=== PATIENT | male | born 1955 | race Caucasian/White ===

== ENCOUNTER 2022-06-30 19:16 | Inpatient (IN) | payer MEDICARE, MEDICAID ==
[~2022-06-30] VITALS: Ht 170.2 cm; Wt 87.1 kg
[2022-06-30] MEDS ORDERED: NOREPINEPHRINE 8 MG in DEXT 5% WATER 242 ML IV STA ×2 (20:04→20:21)
[2022-06-30] MEDS ORDERED: PROPOFOL 10MG/ML 100ML 100 ML IV STA (20:04)
[2022-06-30 20:25] LABS: CHLORIDE 97 mEq/L (98-107)
[2022-06-30 20:27] LABS: HEMATOCRIT. 38.1 % (42.0-52.0); HEMOGLOBIN. 12.1 g/dL (14.0-18.0); MEAN CORPUSCULAR HEMOGLOBIN 29.3 pg (28.0-32.0); MEAN CORPUSCULAR VOLUME 92.2 fL (80.0-94.0); MEAN PLATELET VOLUME 7.2 fl (7.4-10.4); PLATELET 528 x1000/uL (130-400); RED BLOOD CELL COUNT 4.14 mill/uL (4.7-6.1); RED CELL DISTRIBUTION WIDTH 16.4 % (11.6-14.6)
[2022-06-30 20:42] LABS: ETHANOL BLOOD < 10 mg/dL
[2022-06-30] MEDS ORDERED: PIPERACILLIN/TAZ 3.375G PREMIX 50 ML IV ONE (21:15)
[2022-06-30] MEDS ORDERED: DOCUSATE SODIUM 100MG CAPSULE PO PRN (21:15)
[2022-06-30] MEDS ORDERED: ALBUTEROL (0.083%) 2.5MG/3ML NEB HHN ONE (21:15)
[2022-06-30] MEDS ORDERED: SODIUM CHLORIDE 0.9% 1,000 ML IV SCH (21:15)
[2022-06-30] MEDS ORDERED: DEXTROSE 50% WATER 50ML SYRINGE IV ONE (21:15)
[2022-06-30] MEDS ORDERED: MAGNESIUM/ALUMINUM HYDROXIDE/SIMETHICONE 30ML UDC PO PRN (21:15)
[2022-06-30] MEDS ORDERED: ACETAMINOPHEN 325MG TABLET PO PRN (21:15)
[2022-06-30] MEDS ORDERED: SODIUM POLYSTYRENE SULFONATE 15 G/60 ML BOT PO ONE (21:15)
[2022-06-30] MEDS ORDERED: INSULIN REGULAR (HUMULIN R) 300UNITS/3ML VIAL IV ONE (21:15)
[2022-06-30] MEDS ORDERED: VANCOMYCIN 1G PREMIX 200 ML IV ONE (21:15)
[2022-06-30] MEDS ORDERED: SODIUM BICARBONATE 8.4% 1 MEQ/ML 50ML SYR IV ONE (21:15)
[2022-06-30] MEDS ORDERED: SODIUM CHLORIDE 0.9% 1000ML BAG (SEPSIS BOLUS) IV ONE (21:15)
[2022-06-30] MEDS ORDERED: CLONIDINE 0.1MG TABLET PO PRN (21:15)
[2022-06-30] MEDS ORDERED: NOREPINEPHRINE 8 MG in DEXT 5% WATER 242 ML IV PRN (21:15)
[2022-06-30] MEDS ORDERED: GUAIFENESIN 200MG/10ML SUGAR FREE UDC PO PRN (21:15)
[2022-06-30] MEDS ORDERED: ONDANSETRON HCL 4MG/2ML INJ IV PRN (21:15)
[2022-06-30] MEDS ORDERED: DIPHENHYDRAMINE 50MG/ML VIAL IV PRN (21:15)
[2022-06-30] MEDS ORDERED: CALCIUM GLUCONATE 1GM PREMIX 50 ML IV ONE (21:15)
[2022-06-30 21:16] LABS: PARTIAL THROMBOPLASTIN TIME 23.9 sec (23.4-31.0); PROTHROMBIN TIME 10.7 sec (9.6-11.0)
[2022-06-30] MEDS ORDERED: DEXTROSE 50% WATER 50ML SYRINGE IV PRN (21:30)
[2022-06-30] MEDS ORDERED: PIPERACILLIN/TAZOBACTAM 3.375GM/50ML PREMIX IV SCH (22:00)
[2022-06-30 22:02] LABS: PLATELET ESTIMATE INCREASED
[2022-06-30 22:14] LABS: BG BASE EXCESS 3.3 mmol/L (-2.0-2.0); BG CARBOXYHEMOGLOBIN 1.1 % (0.5-1.5); BG DEOXYHEMOGLOBIN 7.5 % (0.0-5.0); BG FRACTION INSPIRED OXYGEN 60; BG HCO3 ACT 29.7 mmol/L (22.0-26.0); BG METHEMOGLOBIN 0.4 % (0.0-1.5); BG OXYGEN SATURATION 92.4 % (92.0-98.5); BG PCO2 53.2 mmHg (35.0-45.0); BG PH 7.365 (7.350-7.450); BG PO2 64.8 mmHg (75.0-100.0); BG SAMPLE SITE RIGHT BRACHIAL; BG TOTAL HEMOGLOBIN 12.3 g/dL (12.0-18.0); BG VENT MODE VENT - AC
[2022-06-30] MEDS ORDERED: VANCOMYCIN 1G PREMIX 200 ML IV NR (22:30)
[2022-06-30] MEDS ORDERED: LORAZEPAM 2MG/ML CPJ IV ONE (22:45)
[2022-06-30] MEDS ORDERED: SODIUM BICARBONATE 8.4% 1 MEQ/ML 50ML SYR IV NR (23:00)
[2022-06-30] MEDS ORDERED: INSULIN REGULAR (HUMULIN R) 300UNITS/3ML VIAL IV NR (23:00)
[2022-06-30 23:11] LABS: CREATINE KINASE MB FRACTION 1.8 ng/mL (0.5-3.6); T4 FREE 1.09 ng/dL (0.76-1.46)
[2022-06-30] MEDS: FAMOTIDINE 20MG/2ML VIAL IV SCH (23:41)
[2022-06-30] MEDS: FUROSEMIDE 100MG/10ML VIAL IVP NR (23:49)
[2022-07-01] VITALS (16 sets, daily range): BP systolic 107–127; BP diastolic 38–87
[2022-07-01] MEDS: FUROSEMIDE 100MG/10ML VIAL IVP NR (00:02)
[2022-07-01] MEDS ORDERED: LORAZEPAM 2MG/ML CPJ ONE (00:21)
[2022-07-01] MEDS ORDERED: PROPOFOL 10MG/ML 100ML 100 ML IV NR (03:15)
[2022-07-01] MEDS: PIPERACILLIN/TAZ 3.375G PREMIX 50 ML IV SCH ×2 (04:00→17:11)
[2022-07-01 06:00] LABS: BASOPHILS % 0.6 % (0.0-2.0); EOSINOPHILS % 0.4 % (0.0-5.0); HEMATOCRIT. 31.5 % (42.0-52.0); HEMOGLOBIN. 10.6 g/dL (14.0-18.0); LYMPHOCYTES % 8.9 % (20.0-50.0); MEAN CORPUSCULAR HEMOGLOBIN 30.1 pg (28.0-32.0); MEAN CORPUSCULAR VOLUME 89.7 fL (80.0-94.0); MEAN PLATELET VOLUME 6.8 fl (7.4-10.4); MONOCYTES % 4.9 % (2.0-8.0); NEUTROPHILS % 85.2 % (40.0-76.0); PLATELET 342 x1000/uL (130-400); RED BLOOD CELL COUNT 3.51 mill/uL (4.7-6.1); RED CELL DISTRIBUTION WIDTH 16.1 % (11.6-14.6)
[2022-07-01] MEDS ORDERED: VANCOMYCIN 750MG PREMIX 150 ML IV SCH (06:00)
[2022-07-01 06:07] LABS: CHLORIDE 102 mEq/L (98-107)
[2022-07-01 06:20] LABS: CREATINE KINASE 101 IU/L (39-308); CREATINE KINASE MB FRACTION 1.7 ng/mL (0.5-3.6)
[2022-07-01] MEDS: BLOOD SUGAR DIAGNOSTIC STRIP TEST SCH ×4 (09:15→21:25)
[2022-07-01 09:26] LABS: BG BASE EXCESS 5.9 mmol/L (-2.0-2.0); BG CARBOXYHEMOGLOBIN 0.3 % (0.5-1.5); BG DEOXYHEMOGLOBIN 0.9 % (0.0-5.0); BG FRACTION INSPIRED OXYGEN 90; BG HCO3 ACT 28.5 mmol/L (22.0-26.0); BG METHEMOGLOBIN 0.7 % (0.0-1.5); BG OXYGEN SATURATION 99.1 % (92.0-98.5); BG OXYHEMOGLOBIN 98.1 % (94.0-97.0); BG PCO2 33.9 mmHg (35.0-45.0); BG PH 7.542 (7.350-7.450); BG PO2 213.5 mmHg (75.0-100.0); BG SAMPLE SITE RIGHT BRACHIAL; BG TOTAL HEMOGLOBIN 10.7 g/dL (12.0-18.0); BG VENT MODE VENT - AC
[2022-07-01] MEDS: INSULIN LISPRO 100 UNITS/ML SUBCUT SCH ×3 (09:48→21:00)
[2022-07-01] MEDS: FAMOTIDINE 20MG/2ML VIAL IV SCH (10:46)
[2022-07-01] MEDS: ENOXAPARIN 40MG/0.4ML SYR SUBCUT SCH (10:47)
[2022-07-01] MEDS: VANCOMYCIN 750MG PREMIX 150 ML IV SCH (11:30)
[2022-07-01] MEDS ORDERED: FENTANYL CITRATE/PF 2,500 MCG in SODIUM CHLORIDE 0.9% 200 ML IV PRN (12:30)
[2022-07-01] MEDS: FENTANYL 2500MCG/250ML PMX 250 ML IV PRN (14:30)
[2022-07-01] MEDS: DEXT 5%/0.45% NACL 1000ML 1,000 ML IV SCH ×2 (17:12→21:25)
[2022-07-01] MEDS ORDERED: METRONIDAZOLE 1000 MG PREMIX 200 ML IV SCH (18:00)
[2022-07-01] MEDS ORDERED: METRONIDAZOLE 500 MG PREMIX 100 ML IV SCH (18:30)
[2022-07-01] MEDS: PIPERACILLIN/TAZOBACTAM 3.375G in DEXT 5% WATER 50ML IV SCH (22:19)
[2022-07-02] VITALS (91 sets, daily range): BP systolic 90–156; BP diastolic 32–93
[2022-07-02] MEDS: VANCOMYCIN 750MG PREMIX 150 ML IV SCH ×2 (02:59→21:00)
[2022-07-02] MEDS: METRONIDAZOLE 500 MG PREMIX 100 ML IV SCH ×3 (03:00→21:00)
[2022-07-02] MEDS ORDERED: PROPOFOL 10MG/ML 100ML 100 ML IV ONE (03:15)
[2022-07-02 05:29] LABS: BASOPHILS % 0.7 % (0.0-2.0); EOSINOPHILS % 0.5 % (0.0-5.0); HEMATOCRIT. 32.7 % (42.0-52.0); HEMOGLOBIN. 10.7 g/dL (14.0-18.0); LYMPHOCYTES % 8.2 % (20.0-50.0); MEAN CORPUSCULAR HEMOGLOBIN 29.6 pg (28.0-32.0); MEAN CORPUSCULAR VOLUME 90.6 fL (80.0-94.0); MEAN PLATELET VOLUME 7.1 fl (7.4-10.4); MONOCYTES % 4.9 % (2.0-8.0); NEUTROPHILS % 85.7 % (40.0-76.0); PLATELET 298 x1000/uL (130-400); RED BLOOD CELL COUNT 3.61 mill/uL (4.7-6.1); RED CELL DISTRIBUTION WIDTH 15.5 % (11.6-14.6)
[2022-07-02 05:48] LABS: CHLORIDE 101 mEq/L (98-107)
[2022-07-02] MEDS: BLOOD SUGAR DIAGNOSTIC STRIP TEST SCH ×4 (06:07→21:02)
[2022-07-02] MEDS: INSULIN LISPRO 100 UNITS/ML SUBCUT SCH ×4 (06:07→21:00)
[2022-07-02 06:08] LABS: TOTAL IRON BINDING CAPACITY 298 ug/dL (250-450)
[2022-07-02 08:10] LABS: BG CARBOXYHEMOGLOBIN 0.9 % (0.5-1.5); BG DEOXYHEMOGLOBIN 4.4 % (0.0-5.0); BG HCO3 ACT 30.5 mmol/L (22.0-26.0); BG METHEMOGLOBIN 0.4 % (0.0-1.5); BG OXYGEN SATURATION 95.5 % (92.0-98.5); BG OXYHEMOGLOBIN 94.3 % (94.0-97.0); BG PCO2 43.8 mmHg (35.0-45.0); BG PO2 77.2 mmHg (75.0-100.0); BG SAMPLE SITE RIGHT RADIAL; BG TOTAL HEMOGLOBIN 10.5 g/dL (12.0-18.0); BG VENT MODE VENT - AC
[2022-07-02 08:19] LABS: FERRITIN 20 ng/mL (22-322); PROSTRATE SPECIFIC AG TOTAL 0.46 ng/mL (0.0-4.0)
[2022-07-02] MEDS: AMLODIPINE 5MG TABLET PO SCH (09:00)
[2022-07-02] MEDS: PANTOPRAZOLE SODIUM 40 MG/VIAL IV SCH (09:01)
[2022-07-02] MEDS: PIPERACILLIN/TAZOBACTAM 3.375G in DEXT 5% WATER 50ML IV SCH ×3 (09:01→21:00)
[2022-07-02] MEDS: IRON SUCROSE COMPLEX 100 MG/5 ML ML IV SCH (10:07)
[2022-07-02] MEDS: ENOXAPARIN 40MG/0.4ML SYR SUBCUT SCH (10:08)
[2022-07-02] MEDS: DEXT 5%/0.45% NACL 1000ML 1,000 ML IV SCH ×2 (11:43→21:03)
[2022-07-02] MEDS: PROPOFOL 10MG/ML 100ML 100 ML IV PRN ×2 (12:35→17:30)
[2022-07-02] MEDS: FENTANYL 2500MCG/250ML PMX 250 ML IV PRN (12:54)
[2022-07-02] MEDS ORDERED: IOHEXOL-300 100 ML BOTTLE ONE (14:39)
[2022-07-02 17:22] LABS: VITAMIN B12 SERUM 428 pg/mL (211-911)
[2022-07-02] MEDS: METOCLOPRAMIDE HCL 10MG/2ML VIAL IV SCH ×2 (17:37→21:02)
[2022-07-03] VITALS (64 sets, daily range): BP systolic 99–174; BP diastolic 49–90
[2022-07-03] MEDS: METOCLOPRAMIDE HCL 10MG/2ML VIAL IV SCH ×6 (02:09→21:03)
[2022-07-03] MEDS: METRONIDAZOLE 500 MG PREMIX 100 ML IV SCH ×3 (03:25→20:19)
[2022-07-03 05:18] LABS: BASOPHILS % 0.7 % (0.0-2.0); EOSINOPHILS % 0.9 % (0.0-5.0); HEMATOCRIT. 30.5 % (42.0-52.0); HEMOGLOBIN. 10.3 g/dL (14.0-18.0); LYMPHOCYTES % 9.6 % (20.0-50.0); MEAN CORPUSCULAR HEMOGLOBIN 30.2 pg (28.0-32.0); MEAN CORPUSCULAR VOLUME 89.2 fL (80.0-94.0); MEAN PLATELET VOLUME 7.3 fl (7.4-10.4); MONOCYTES % 5.1 % (2.0-8.0); NEUTROPHILS % 83.7 % (40.0-76.0); PLATELET 277 x1000/uL (130-400); RED BLOOD CELL COUNT 3.42 mill/uL (4.7-6.1); RED CELL DISTRIBUTION WIDTH 15.9 % (11.6-14.6)
[2022-07-03 05:35] LABS: CHLORIDE 101 mEq/L (98-107)
[2022-07-03] MEDS: BLOOD SUGAR DIAGNOSTIC STRIP TEST SCH ×4 (05:43→21:03)
[2022-07-03] MEDS: PIPERACILLIN/TAZOBACTAM 3.375G in DEXT 5% WATER 50ML IV SCH ×3 (05:43→21:04)
[2022-07-03] MEDS: INSULIN LISPRO 100 UNITS/ML SUBCUT SCH ×4 (07:00→21:00)
[2022-07-03] MEDS ORDERED: PROPOFOL 10MG/ML 100ML 100 ML IV PRN (08:15)
[2022-07-03] MEDS: IRON SUCROSE COMPLEX 100 MG/5 ML ML IV SCH (08:47)
[2022-07-03] MEDS: PANTOPRAZOLE SODIUM 40 MG/VIAL IV SCH (08:47)
[2022-07-03] MEDS: AMLODIPINE 5MG TABLET PO SCH (08:48)
[2022-07-03] MEDS: ENOXAPARIN 40MG/0.4ML SYR SUBCUT SCH (08:52)
[2022-07-03] MEDS: DEXT 5%/0.45% NACL 1000ML 1,000 ML IV SCH ×2 (08:55→17:30)
[2022-07-03 08:56] LABS: BG BASE EXCESS 2.7 mmol/L (-2.0-2.0); BG CARBOXYHEMOGLOBIN 0.5 % (0.5-1.5); BG DEOXYHEMOGLOBIN 3.2 % (0.0-5.0); BG FRACTION INSPIRED OXYGEN 50; BG HCO3 ACT 28.3 mmol/L (22.0-26.0); BG METHEMOGLOBIN 0.4 % (0.0-1.5); BG OXYGEN SATURATION 96.8 % (92.0-98.5); BG OXYHEMOGLOBIN 95.9 % (94.0-97.0); BG PO2 99.3 mmHg (75.0-100.0); BG SAMPLE SITE LEFT RADIAL; BG TOTAL HEMOGLOBIN 9.7 g/dL (12.0-18.0); BG VENT MODE VENT - AC
[2022-07-03] MEDS ORDERED: ALBUTEROL (0.083%) 2.5MG/3ML NEB HHN PRN (10:45)
[2022-07-03] MEDS ORDERED: IPRATROPIUM/ALBUTEROL 0.5-3(2.5)MG/3ML NEB HHN PRN (10:45)
[2022-07-03] MEDS ORDERED: DEXTROSE 50% WATER 50ML SYRINGE IV PRN (12:00)
[2022-07-03] MEDS ORDERED: ALBUTEROL (0.083%) 2.5MG/3ML NEB HHN SCH (12:00)
[2022-07-03 13:40] LABS: BG BASE EXCESS 1.6 mmol/L (-2.0-2.0); BG CARBOXYHEMOGLOBIN 0.9 % (0.5-1.5); BG DEOXYHEMOGLOBIN 7.7 % (0.0-5.0); BG FRACTION INSPIRED OXYGEN 40; BG HCO3 ACT 28.1 mmol/L (22.0-26.0); BG METHEMOGLOBIN 0.6 % (0.0-1.5); BG OXYGEN SATURATION 92.2 % (92.0-98.5); BG OXYHEMOGLOBIN 90.8 % (94.0-97.0); BG PH 7.343 (7.350-7.450); BG PO2 68.1 mmHg (75.0-100.0); BG SAMPLE SITE RIGHT RADIAL; BG TOTAL HEMOGLOBIN 12.3 g/dL (12.0-18.0); BG VENT MODE VENT - CPAP
[2022-07-03] MEDS: IPRATROPIUM/ALBUTEROL 0.5-3(2.5)MG/3ML NEB HHN SCH ×2 (14:06→20:47)
[2022-07-03] MEDS ORDERED: BLOOD SUGAR DIAGNOSTIC STRIP TEST SCH (16:30)
[2022-07-03] MEDS: VANCOMYCIN 750MG PREMIX 150 ML IV SCH (21:03)
[2022-07-03] MEDS ORDERED: INSULIN GLARGINE 100 UNITS/ML SUBCUT SCH (22:00)
[2022-07-04] VITALS (44 sets, daily range): BP systolic 96–152; BP diastolic 45–86
[2022-07-04] MEDS: METOCLOPRAMIDE HCL 10MG/2ML VIAL IV SCH ×6 (00:30→20:51)
[2022-07-04] MEDS: IPRATROPIUM/ALBUTEROL 0.5-3(2.5)MG/3ML NEB HHN SCH ×4 (02:22→20:20)
[2022-07-04] MEDS: METRONIDAZOLE 500 MG PREMIX 100 ML IV SCH ×3 (03:55→18:37)
[2022-07-04 05:08] LABS: HEMATOCRIT. 29.7 % (42.0-52.0); HEMOGLOBIN. 9.7 g/dL (14.0-18.0); MEAN CORPUSCULAR HEMOGLOBIN 29.3 pg (28.0-32.0); MEAN CORPUSCULAR VOLUME 89.4 fL (80.0-94.0); MEAN PLATELET VOLUME 7.1 fl (7.4-10.4); PLATELET 213 x1000/uL (130-400); RED BLOOD CELL COUNT 3.32 mill/uL (4.7-6.1); RED CELL DISTRIBUTION WIDTH 15.9 % (11.6-14.6)
[2022-07-04 05:12] LABS: CHLORIDE 105 mEq/L (98-107)
[2022-07-04] MEDS: PIPERACILLIN/TAZOBACTAM 3.375G in DEXT 5% WATER 50ML IV SCH ×3 (06:01→21:16)
[2022-07-04] MEDS: INSULIN LISPRO 100 UNITS/ML SUBCUT SCH ×4 (06:02→21:17)
[2022-07-04] MEDS: BLOOD SUGAR DIAGNOSTIC STRIP TEST SCH ×4 (06:02→21:00)
[2022-07-04] MEDS: ENOXAPARIN 40MG/0.4ML SYR SUBCUT SCH (08:22)
[2022-07-04] MEDS: AMLODIPINE 5MG TABLET PO SCH (08:25)
[2022-07-04] MEDS: PANTOPRAZOLE SODIUM 40 MG/VIAL IV SCH (08:28)
[2022-07-04] MEDS: IRON SUCROSE COMPLEX 100 MG/5 ML ML IV SCH (08:28)
[2022-07-04 08:40] LABS: BG BASE EXCESS 5.4 mmol/L (-2.0-2.0); BG CARBOXYHEMOGLOBIN 0.3 % (0.5-1.5); BG DEOXYHEMOGLOBIN 3.6 % (0.0-5.0); BG HCO3 ACT 32.9 mmol/L (22.0-26.0); BG METHEMOGLOBIN 0.3 % (0.0-1.5); BG OXYGEN SATURATION 96.4 % (92.0-98.5); BG OXYHEMOGLOBIN 95.8 % (94.0-97.0); BG PCO2 65.2 mmHg (35.0-45.0); BG PH 7.321 (7.350-7.450); BG PO2 90.9 mmHg (75.0-100.0); BG SAMPLE SITE RIGHT BRACHIAL; BG TOTAL HEMOGLOBIN 10.5 g/dL (12.0-18.0); BG VENT MODE COOL AEROSOL
[2022-07-04 10:21] LABS: NUCLEATED RED BLOOD CELLS 1 /100 WBC; PLATELET ESTIMATE NORMAL
[2022-07-04] MEDS: METHYLPREDNISOLONE SOD SUCC 125 MG/2 ML VIAL IV SCH ×2 (13:01→21:16)
[2022-07-04] MEDS: DEXT 5%/0.45% NACL 1000ML 1,000 ML IV SCH ×2 (13:02→21:17)
[2022-07-04] MEDS ORDERED: SORBITOL 70% SOLN 30ML PO ONE (13:30)
[2022-07-04] MEDS ORDERED: POTASSIUM CHLORIDE INJ 40 MEQ in DEXT 5% WATER 250 ML IV ONE (13:30)
[2022-07-04] MEDS: BUDESONIDE 0.5MG/2ML NEB HHN SCH ×2 (13:45→20:20)
[2022-07-04] MEDS ORDERED: ACETYLCYSTEINE 200MG/ML 20% VIAL 4ML INH SCH (14:00)
[2022-07-04] MEDS ORDERED: SORBITOL 70% SOLN 30ML PO NR (14:00)
[2022-07-04] MEDS: KCL 20MEQ/100ML X 2 FOR TOTAL KCL 40MEQ/200ML IV SCH ×2 (15:26→17:10)
[2022-07-04 16:11] LABS: BG CARBOXYHEMOGLOBIN 0.8 % (0.5-1.5); BG DEOXYHEMOGLOBIN 7.5 % (0.0-5.0); BG FRACTION INSPIRED OXYGEN 28; BG HCO3 ACT 31.1 mmol/L (22.0-26.0); BG METHEMOGLOBIN 0.8 % (0.0-1.5); BG OXYGEN SATURATION 92.4 % (92.0-98.5); BG OXYHEMOGLOBIN 90.9 % (94.0-97.0); BG PCO2 59.7 mmHg (35.0-45.0); BG PH 7.335 (7.350-7.450); BG PO2 66.6 mmHg (75.0-100.0); BG SAMPLE SITE RIGHT RADIAL; BG TOTAL HEMOGLOBIN 11.1 g/dL (12.0-18.0); BG VENT MODE NASAL CANNULA
[2022-07-04] MEDS: VANCOMYCIN 750MG PREMIX 150 ML IV SCH (20:51)
[2022-07-05] VITALS (22 sets, daily range): BP systolic 116–169; BP diastolic 36–111
[2022-07-05] MEDS: METOCLOPRAMIDE HCL 10MG/2ML VIAL IV SCH ×6 (00:42→21:58)
[2022-07-05] MEDS: IPRATROPIUM/ALBUTEROL 0.5-3(2.5)MG/3ML NEB HHN SCH ×3 (02:02→14:59)
[2022-07-05] MEDS: METRONIDAZOLE 500 MG PREMIX 100 ML IV SCH ×3 (03:12→21:57)
[2022-07-05 05:20] LABS: HEMATOCRIT. 31.6 % (42.0-52.0); HEMOGLOBIN. 10.2 g/dL (14.0-18.0); MEAN CORPUSCULAR HEMOGLOBIN 28.9 pg (28.0-32.0); MEAN CORPUSCULAR VOLUME 89.3 fL (80.0-94.0); MEAN PLATELET VOLUME 7.6 fl (7.4-10.4); PLATELET 207 x1000/uL (130-400); RED BLOOD CELL COUNT 3.54 mill/uL (4.7-6.1); RED CELL DISTRIBUTION WIDTH 15.6 % (11.6-14.6)
[2022-07-05 05:32] LABS: CHLORIDE 101 mEq/L (98-107)
[2022-07-05] MEDS: METHYLPREDNISOLONE SOD SUCC 125 MG/2 ML VIAL IV SCH (06:37)
[2022-07-05] MEDS: PIPERACILLIN/TAZOBACTAM 3.375G in DEXT 5% WATER 50ML IV SCH ×3 (06:38→21:57)
[2022-07-05] MEDS: DEXT 5%/0.45% NACL 1000ML 1,000 ML IV SCH ×2 (06:38→16:50)
[2022-07-05] MEDS: ACETAMINOPHEN 325MG TABLET PO PRN (06:39)
[2022-07-05 07:56] LABS: PLATELET ESTIMATE NORMAL
[2022-07-05] MEDS: INSULIN LISPRO 100 UNITS/ML SUBCUT SCH ×4 (08:00→22:00)
[2022-07-05] MEDS: BLOOD SUGAR DIAGNOSTIC STRIP TEST SCH ×4 (08:18→21:00)
[2022-07-05] MEDS: ENOXAPARIN 40MG/0.4ML SYR SUBCUT SCH (09:00)
[2022-07-05] MEDS: IRON SUCROSE COMPLEX 100 MG/5 ML ML IV SCH (09:00)
[2022-07-05] MEDS: PANTOPRAZOLE SODIUM 40 MG/VIAL IV SCH (09:00)
[2022-07-05] MEDS: AMLODIPINE 5MG TABLET PO SCH (09:00)
[2022-07-05] MEDS: BUDESONIDE 0.5MG/2ML NEB HHN SCH ×2 (09:31→21:00)
[2022-07-05 09:36] LABS: BG BASE EXCESS -0.9 mmol/L (-2.0-2.0); BG CARBOXYHEMOGLOBIN 0.5 % (0.5-1.5); BG DEOXYHEMOGLOBIN 4.6 % (0.0-5.0); BG FRACTION INSPIRED OXYGEN 24; BG HCO3 ACT 24.7 mmol/L (22.0-26.0); BG METHEMOGLOBIN 0.3 % (0.0-1.5); BG OXYGEN SATURATION 95.4 % (92.0-98.5); BG OXYHEMOGLOBIN 94.6 % (94.0-97.0); BG PCO2 44.6 mmHg (35.0-45.0); BG PH 7.361 (7.350-7.450); BG PO2 81.6 mmHg (75.0-100.0); BG SAMPLE SITE RIGHT RADIAL; BG TOTAL HEMOGLOBIN 10.8 g/dL (12.0-18.0); BG VENT MODE NASAL CANNULA
[2022-07-05] MEDS: METHYLPREDNISOLONE SOD SUCC 40 MG/ML VIAL IV SCH ×2 (13:18→21:58)
[2022-07-05] MEDS ORDERED: IPRATROPIUM BROMIDE (0.02%) 0.5MG/2.5ML NEB HHN PRN (15:30)
[2022-07-05] MEDS ORDERED: ALBUTEROL (0.083%) 2.5MG/3ML NEB HHN PRN (15:30)
[2022-07-05] MEDS: IPRATROPIUM BROMIDE (0.02%) 0.5MG/2.5ML NEB HHN SCH (21:26)
[2022-07-05] MEDS: ALBUTEROL (0.083%) 2.5MG/3ML NEB HHN SCH (21:27)
[2022-07-05] MEDS: VANCOMYCIN 750MG PREMIX 150 ML IV SCH (21:56)
[2022-07-05] MEDS ORDERED: INSULIN GLARGINE 100 UNITS/ML SUBCUT SCH (22:00)
[2022-07-06] VITALS (11 sets, daily range): BP systolic 127–166; BP diastolic 59–86
[2022-07-06] MEDS: METOCLOPRAMIDE HCL 10MG/2ML VIAL IV SCH ×7 (01:17→23:06)
[2022-07-06] MEDS: ALBUTEROL (0.083%) 2.5MG/3ML NEB HHN SCH ×3 (01:39→20:51)
[2022-07-06] MEDS: IPRATROPIUM BROMIDE (0.02%) 0.5MG/2.5ML NEB HHN SCH ×3 (01:39→20:51)
[2022-07-06] MEDS: METRONIDAZOLE 500 MG PREMIX 100 ML IV SCH ×3 (03:52→19:47)
[2022-07-06] MEDS: DEXT 5%/0.45% NACL 1000ML 1,000 ML IV SCH ×2 (06:17→19:47)
[2022-07-06] MEDS: METHYLPREDNISOLONE SOD SUCC 40 MG/ML VIAL IV SCH ×3 (06:24→20:51)
[2022-07-06] MEDS: BLOOD SUGAR DIAGNOSTIC STRIP TEST SCH ×4 (07:30→20:47)
[2022-07-06] MEDS ORDERED: AMLODIPINE 10MG TABLET GT SCH (09:00)
[2022-07-06 09:05] LABS: HEMATOCRIT. 30.7 % (42.0-52.0); HEMOGLOBIN. 10.1 g/dL (14.0-18.0); MEAN CORPUSCULAR HEMOGLOBIN 29.2 pg (28.0-32.0); MEAN CORPUSCULAR VOLUME 88.5 fL (80.0-94.0); MEAN PLATELET VOLUME 7.9 fl (7.4-10.4); PLATELET 209 x1000/uL (130-400); RED BLOOD CELL COUNT 3.47 mill/uL (4.7-6.1); RED CELL DISTRIBUTION WIDTH 15.8 % (11.6-14.6)
[2022-07-06] MEDS: PANTOPRAZOLE SODIUM 40 MG/VIAL IV SCH (09:06)
[2022-07-06] MEDS: INSULIN LISPRO 100 UNITS/ML SUBCUT SCH ×4 (09:06→21:00)
[2022-07-06] MEDS: ENOXAPARIN 40MG/0.4ML SYR SUBCUT SCH (09:09)
[2022-07-06 09:23] LABS: CHLORIDE 104 mEq/L (98-107)
[2022-07-06] MEDS ORDERED: POTASSIUM CHLORIDE INJ 40 MEQ in DEXT 5% WATER 250 ML IV ONE (09:45)
[2022-07-06 11:53] LABS: PLATELET ESTIMATE NORMAL
[2022-07-06] MEDS ORDERED: POTASSIUM CHLORIDE 20MEQ TABLET SR PO SCH (12:15)
[2022-07-06] MEDS: KCL 20MEQ/100ML X 2 FOR TOTAL KCL 40MEQ/200ML IV SCH ×2 (15:22→15:26)
[2022-07-06] MEDS ORDERED: POTASSIUM CHLORIDE 20MEQ TABLET SR PO NR (16:00)
[2022-07-06] MEDS: BUDESONIDE 0.5MG/2ML NEB HHN SCH (21:00)
[2022-07-06] MEDS ORDERED: INSULIN GLARGINE 100 UNITS/ML SUBCUT SCH (22:00)
[2022-07-07] VITALS (11 sets, daily range): BP systolic 99–158; BP diastolic 52–106
[2022-07-07] MEDS: IPRATROPIUM BROMIDE (0.02%) 0.5MG/2.5ML NEB HHN SCH ×4 (01:29→20:35)
[2022-07-07] MEDS: ALBUTEROL (0.083%) 2.5MG/3ML NEB HHN SCH ×4 (01:29→20:40)
[2022-07-07] MEDS: DEXT 5%/0.45% NACL 1000ML 1,000 ML IV SCH (03:08)
[2022-07-07] MEDS: METOCLOPRAMIDE HCL 10MG/2ML VIAL IV SCH ×6 (03:09→23:28)
[2022-07-07] MEDS: METHYLPREDNISOLONE SOD SUCC 40 MG/ML VIAL IV SCH ×4 (06:22→23:28)
[2022-07-07 06:47] LABS: HEMATOCRIT. 31.4 % (42.0-52.0); HEMOGLOBIN. 10.3 g/dL (14.0-18.0); MEAN CORPUSCULAR HEMOGLOBIN 29.3 pg (28.0-32.0); MEAN CORPUSCULAR VOLUME 88.8 fL (80.0-94.0); MEAN PLATELET VOLUME 7.9 fl (7.4-10.4); PLATELET 204 x1000/uL (130-400); RED BLOOD CELL COUNT 3.53 mill/uL (4.7-6.1); RED CELL DISTRIBUTION WIDTH 15.9 % (11.6-14.6)
[2022-07-07 07:22] LABS: CHLORIDE 99 mEq/L (98-107)
[2022-07-07] MEDS: BLOOD SUGAR DIAGNOSTIC STRIP TEST SCH ×4 (07:30→20:08)
[2022-07-07 08:05] LABS: PLATELET ESTIMATE NORMAL
[2022-07-07 08:06] LABS: PHOSPHORUS 0.6 mg/dL (2.5-4.9)
[2022-07-07] MEDS ORDERED: SODIUM CHLORIDE 0.45% 1,000 ML IV SCH (09:00)
[2022-07-07] MEDS: BUDESONIDE 0.5MG/2ML NEB HHN SCH (09:28)
[2022-07-07] MEDS ORDERED: MAGNESIUM 2 G PREMIX 50 ML IV SCH (10:00)
[2022-07-07] MEDS: AMLODIPINE 10MG TABLET GT SCH (10:08)
[2022-07-07] MEDS: ENOXAPARIN 40MG/0.4ML SYR SUBCUT SCH (10:08)
[2022-07-07] MEDS: INSULIN LISPRO 100 UNITS/ML SUBCUT SCH ×4 (10:17→20:12)
[2022-07-07] MEDS: PANTOPRAZOLE SODIUM 40 MG/VIAL IV SCH (10:19)
[2022-07-07] MEDS ORDERED: SODIUM PHOS,M-BASIC-D-BASIC 30 MM in DEXT 5% WATER 500 ML IV SCH (11:00)
[2022-07-07] MEDS ORDERED: DEXTROSE 50% WATER 50ML SYRINGE IV PRN (14:00)
[2022-07-07 20:29] LABS: PHOSPHORUS 2.7 mg/dL (2.5-4.9)
[2022-07-07] MEDS: INSULIN GLARGINE 100 UNITS/ML SUBCUT SCH (21:23)
[2022-07-08] VITALS: BP 128/63
[2022-07-08] MEDS: ALBUTEROL (0.083%) 2.5MG/3ML NEB HHN SCH ×4 (01:28→21:46)
[2022-07-08] MEDS: IPRATROPIUM BROMIDE (0.02%) 0.5MG/2.5ML NEB HHN SCH ×4 (01:28→21:47)
[2022-07-08] MEDS: METOCLOPRAMIDE HCL 10MG/2ML VIAL IV SCH ×5 (03:18→21:16)
[2022-07-08 04:00] VITALS: BP 155/69
[2022-07-08 06:12] LABS: HEMATOCRIT. 31.2 % (42.0-52.0); HEMOGLOBIN. 10.4 g/dL (14.0-18.0); MEAN CORPUSCULAR HEMOGLOBIN 29.4 pg (28.0-32.0); MEAN PLATELET VOLUME 8.2 fl (7.4-10.4); PLATELET 225 x1000/uL (130-400); RED BLOOD CELL COUNT 3.55 mill/uL (4.7-6.1); RED CELL DISTRIBUTION WIDTH 15.7 % (11.6-14.6)
[2022-07-08 06:54] LABS: CHLORIDE 101 mEq/L (98-107)
[2022-07-08 07:00] LABS: PHOSPHORUS 2.3 mg/dL (2.5-4.9)
[2022-07-08 08:00] VITALS: BP 154/60
[2022-07-08] MEDS: INSULIN LISPRO 100 UNITS/ML SUBCUT SCH ×4 (08:00→21:13)
[2022-07-08] MEDS: BLOOD SUGAR DIAGNOSTIC STRIP TEST SCH ×4 (08:13→21:16)
[2022-07-08] MEDS: PANTOPRAZOLE SODIUM 40 MG/VIAL IV SCH (08:15)
[2022-07-08] MEDS: AMLODIPINE 10MG TABLET GT SCH (08:15)
[2022-07-08] MEDS: ENOXAPARIN 40MG/0.4ML SYR SUBCUT SCH (08:16)
[2022-07-08] MEDS ORDERED: POTASSIUM PHOS,M-BASIC-D-BASIC 20 MMOL in DEXT 5% WATER 243.3333 ML IV ONE (10:00)
[2022-07-08] MEDS ORDERED: DIPHENHYDRAMINE 50MG/ML VIAL ONE (10:49)
[2022-07-08] MEDS ORDERED: TETRACAINE/BENZOCAINE/BUTAMBEN 20 GM SPRAY MM ONE (10:49)
[2022-07-08] MEDS ORDERED: FENTANYL CITRATE/PF 50MCG/ML 2ML VIAL ONE (10:49)
[2022-07-08] MEDS ORDERED: MIDAZOLAM HCL 2 MG/2 ML VIAL ONE (10:50)
[2022-07-08] MEDS ORDERED: LIDOCAINE 2% 6ML GLYDO MM ONE (10:58)
[2022-07-08] MEDS ORDERED: POTASSIUM PHOS,M-BASIC-D-BASIC 15 MMOL in DEXT 5% WATER 245 ML IV NR (11:00)
[2022-07-08 12:00] VITALS: BP 130/64
[2022-07-08] MEDS: METHYLPREDNISOLONE SOD SUCC 40 MG/ML VIAL IV SCH ×2 (13:03→21:04)
[2022-07-08 16:00] VITALS: BP 137/72
[2022-07-08] MEDS: DOCUSATE SODIUM 100MG CAPSULE PO SCH (16:39)
[2022-07-08 20:00] VITALS: BP 147/71
[2022-07-08] MEDS: SENNOSIDES 8.6MG TABLET PO SCH (21:03)
[2022-07-08] MEDS: ACETAMINOPHEN 325MG TABLET PO PRN (21:03)
[2022-07-08] MEDS: INSULIN GLARGINE 100 UNITS/ML SUBCUT SCH (21:14)
[2022-07-08 21:20] LABS: PLATELET ESTIMATE NORMAL
[2022-07-09] VITALS: BP 144/72
[2022-07-09] MEDS: ALBUTEROL (0.083%) 2.5MG/3ML NEB HHN SCH ×3 (01:26→14:00)
[2022-07-09] MEDS: IPRATROPIUM BROMIDE (0.02%) 0.5MG/2.5ML NEB HHN SCH ×3 (01:26→14:00)
[2022-07-09] MEDS: METOCLOPRAMIDE HCL 10MG/2ML VIAL IV SCH ×6 (01:58→22:06)
[2022-07-09 04:00] VITALS: BP 152/69
[2022-07-09] MEDS: ACETAMINOPHEN 325MG TABLET PO PRN (04:14)
[2022-07-09] MEDS: METHYLPREDNISOLONE SOD SUCC 40 MG/ML VIAL IV SCH ×3 (05:56→22:05)
[2022-07-09] MEDS: BLOOD SUGAR DIAGNOSTIC STRIP TEST SCH ×4 (07:53→21:00)
[2022-07-09 08:00] VITALS: BP 157/76
[2022-07-09] MEDS: ENOXAPARIN 40MG/0.4ML SYR SUBCUT SCH (08:04)
[2022-07-09] MEDS: DOCUSATE SODIUM 100MG CAPSULE PO SCH ×2 (08:05→17:00)
[2022-07-09] MEDS: AMLODIPINE 10MG TABLET GT SCH (08:05)
[2022-07-09] MEDS: PANTOPRAZOLE SODIUM 40 MG/VIAL IV SCH (08:06)
[2022-07-09] MEDS: INSULIN LISPRO 100 UNITS/ML SUBCUT SCH ×4 (08:10→22:08)
[2022-07-09 12:00] VITALS: BP 132/69
[2022-07-09 15:11] LABS: BG BASE EXCESS 8.3 mmol/L (-2.0-2.0); BG CARBOXYHEMOGLOBIN 0.9 % (0.5-1.5); BG DEOXYHEMOGLOBIN 12.3 % (0.0-5.0); BG FRACTION INSPIRED OXYGEN 21; BG HCO3 ACT 33.7 mmol/L (22.0-26.0); BG METHEMOGLOBIN 0.1 % (0.0-1.5); BG OXYGEN SATURATION 87.6 % (92.0-98.5); BG OXYHEMOGLOBIN 86.7 % (94.0-97.0); BG PCO2 50.6 mmHg (35.0-45.0); BG PH 7.441 (7.350-7.450); BG PO2 50.7 mmHg (75.0-100.0); BG SAMPLE SITE RIGHT BRACHIAL; BG TOTAL HEMOGLOBIN 11.5 g/dL (12.0-18.0); BG VENT MODE ROOM AIR
[2022-07-09 16:01] LABS: HEMATOCRIT. 32.9 % (42.0-52.0); HEMOGLOBIN. 10.8 g/dL (14.0-18.0); MEAN CORPUSCULAR HEMOGLOBIN 28.9 pg (28.0-32.0); MEAN CORPUSCULAR VOLUME 88.2 fL (80.0-94.0); MEAN PLATELET VOLUME 8.1 fl (7.4-10.4); PLATELET 242 x1000/uL (130-400); RED BLOOD CELL COUNT 3.73 mill/uL (4.7-6.1); RED CELL DISTRIBUTION WIDTH 15.9 % (11.6-14.6)
[2022-07-09 16:16] VITALS: BP 152/55
[2022-07-09 16:21] LABS: CHLORIDE 95 mEq/L (98-107)
[2022-07-09] MEDS ORDERED: FUROSEMIDE 20MG/2ML VIAL IVP NR (16:30)
[2022-07-09 16:31] LABS: PHOSPHORUS 2.1 mg/dL (2.5-4.9)
[2022-07-09 20:10] VITALS: BP 135/49
[2022-07-09 20:33] LABS: PLATELET ESTIMATE NORMAL
[2022-07-09] MEDS: SENNOSIDES 8.6MG TABLET PO SCH (22:06)
[2022-07-09] MEDS: INSULIN GLARGINE 100 UNITS/ML SUBCUT SCH (22:07)
[2022-07-10] MEDS: METOCLOPRAMIDE HCL 10MG/2ML VIAL IV SCH ×7 (00:10→23:25)
[2022-07-10 00:20] VITALS: BP 162/63
[2022-07-10 04:00] VITALS: BP 159/54
[2022-07-10] MEDS: METHYLPREDNISOLONE SOD SUCC 40 MG/ML VIAL IV SCH ×3 (05:01→21:12)
[2022-07-10] MEDS: BLOOD SUGAR DIAGNOSTIC STRIP TEST SCH ×4 (05:02→21:11)
[2022-07-10 06:02] LABS: CHLORIDE 95 mEq/L (98-107)
[2022-07-10 06:13] LABS: PHOSPHORUS 2.5 mg/dL (2.5-4.9)
[2022-07-10 06:30] LABS: HEMATOCRIT. 33.7 % (42.0-52.0); HEMOGLOBIN. 11.3 g/dL (14.0-18.0); MEAN CORPUSCULAR HEMOGLOBIN 29.1 pg (28.0-32.0); MEAN CORPUSCULAR VOLUME 87.3 fL (80.0-94.0); PLATELET 267 x1000/uL (130-400); RED BLOOD CELL COUNT 3.87 mill/uL (4.7-6.1); RED CELL DISTRIBUTION WIDTH 15.8 % (11.6-14.6)
[2022-07-10 08:00] VITALS: BP 159/69
[2022-07-10] MEDS ORDERED: GENTAMICIN 80MG PREMIX 100 ML IV SCH ×2 (08:00→23:00)
[2022-07-10] MEDS: INSULIN LISPRO 100 UNITS/ML SUBCUT SCH ×4 (08:10→21:11)
[2022-07-10 09:29] LABS: BG BASE EXCESS 12.4 mmol/L (-2.0-2.0); BG CARBOXYHEMOGLOBIN 1.8 % (0.5-1.5); BG FRACTION INSPIRED OXYGEN 21; BG HCO3 ACT 38.4 mmol/L (22.0-26.0); BG METHEMOGLOBIN 0.3 % (0.0-1.5); BG OXYGEN SATURATION 86.7 % (92.0-98.5); BG OXYHEMOGLOBIN 84.9 % (94.0-97.0); BG PCO2 56.3 mmHg (35.0-45.0); BG PH 7.452 (7.350-7.450); BG PO2 49.7 mmHg (75.0-100.0); BG SAMPLE SITE RIGHT BRACHIAL; BG TOTAL HEMOGLOBIN 12.3 g/dL (12.0-18.0); BG VENT MODE ROOM AIR
[2022-07-10] MEDS: ENOXAPARIN 40MG/0.4ML SYR SUBCUT SCH (09:48)
[2022-07-10] MEDS: AMLODIPINE 10MG TABLET GT SCH (09:48)
[2022-07-10] MEDS: PANTOPRAZOLE SODIUM 40 MG/VIAL IV SCH (09:48)
[2022-07-10] MEDS: DOCUSATE SODIUM 100MG CAPSULE PO SCH ×2 (09:50→17:58)
[2022-07-10] MEDS ORDERED: MAGNESIUM 4 G PREMIX 100 ML IV NR (10:00)
[2022-07-10] MEDS ORDERED: CEFTRIAXONE 2 G PREMIX 50 ML IV SCH (10:00)
[2022-07-10] MEDS ORDERED: GENTAMICIN 80MG PREMIX 100 ML IV NR (10:30)
[2022-07-10 12:00] VITALS: BP 159/69
[2022-07-10] MEDS: CEFTRIAXONE 2 G in DEXTROSE 5% WATER 50 ML IV SCH (12:18)
[2022-07-10 12:39] LABS: PLATELET ESTIMATE NORMAL
[2022-07-10] MEDS ORDERED: ACETAZOLAMIDE 250MG TABLET PO NR (13:00)
[2022-07-10] MEDS: IPRATROPIUM BROMIDE (0.02%) 0.5MG/2.5ML NEB HHN SCH ×2 (13:25→21:02)
[2022-07-10] MEDS: ALBUTEROL (0.083%) 2.5MG/3ML NEB HHN SCH ×2 (13:25→21:01)
[2022-07-10 16:00] VITALS: BP 127/62
[2022-07-10] MEDS ORDERED: VANCOMYCIN 750MG PREMIX 150 ML IV SCH (16:00)
[2022-07-10 17:39] LABS: CREATINE KINASE 23 IU/L (39-308); CREATINE KINASE MB FRACTION < 1.0 ng/mL (0.5-3.6)
[2022-07-10 20:00] VITALS: BP 114/35
[2022-07-10] MEDS: SENNOSIDES 8.6MG TABLET PO SCH (21:10)
[2022-07-10] MEDS: INSULIN GLARGINE 100 UNITS/ML SUBCUT SCH (21:11)
[2022-07-11] VITALS: BP 118/40
[2022-07-11] MEDS: IPRATROPIUM BROMIDE (0.02%) 0.5MG/2.5ML NEB HHN SCH ×2 (01:00→17:22)
[2022-07-11] MEDS: ALBUTEROL (0.083%) 2.5MG/3ML NEB HHN SCH ×4 (01:00→20:52)
[2022-07-11 03:06] LABS: CREATINE KINASE 19 IU/L (39-308); CREATINE KINASE MB FRACTION < 1.0 ng/mL (0.5-3.6)
[2022-07-11 04:00] VITALS: BP 112/43
[2022-07-11] MEDS: METHYLPREDNISOLONE SOD SUCC 40 MG/ML VIAL IV SCH ×3 (04:59→18:03)
[2022-07-11] MEDS: METOCLOPRAMIDE HCL 10MG/2ML VIAL IV SCH ×6 (04:59→23:01)
[2022-07-11 07:07] LABS: CHLORIDE 95 mEq/L (98-107)
[2022-07-11 07:16] LABS: CREATINE KINASE 21 IU/L (39-308); CREATINE KINASE MB FRACTION < 1.0 ng/mL (0.5-3.6); PHOSPHORUS 3.1 mg/dL (2.5-4.9)
[2022-07-11 07:30] LABS: HEMATOCRIT. 33.7 % (42.0-52.0); HEMOGLOBIN. 11.3 g/dL (14.0-18.0); MEAN CORPUSCULAR HEMOGLOBIN 29.1 pg (28.0-32.0); MEAN CORPUSCULAR VOLUME 87.1 fL (80.0-94.0); MEAN PLATELET VOLUME 8.2 fl (7.4-10.4); PLATELET 266 x1000/uL (130-400); RED BLOOD CELL COUNT 3.87 mill/uL (4.7-6.1); RED CELL DISTRIBUTION WIDTH 16.2 % (11.6-14.6)
[2022-07-11] MEDS: BLOOD SUGAR DIAGNOSTIC STRIP TEST SCH ×4 (07:40→21:09)
[2022-07-11 08:00] VITALS: BP 127/37
[2022-07-11] MEDS: DOCUSATE SODIUM 100MG CAPSULE PO SCH ×3 (09:00→18:03)
[2022-07-11] MEDS: ENOXAPARIN 40MG/0.4ML SYR SUBCUT SCH ×2 (09:00→09:35)
[2022-07-11 09:30] LABS: BG CARBOXYHEMOGLOBIN 0.8 % (0.5-1.5); BG FRACTION INSPIRED OXYGEN 28; BG HCO3 ACT 29.7 mmol/L (22.0-26.0); BG METHEMOGLOBIN 0.3 % (0.0-1.5); BG OXYGEN SATURATION 94.9 % (92.0-98.5); BG OXYHEMOGLOBIN 93.9 % (94.0-97.0); BG PCO2 49.2 mmHg (35.0-45.0); BG PH 7.398 (7.350-7.450); BG PO2 76.5 mmHg (75.0-100.0); BG SAMPLE SITE LEFT BRACHIAL; BG TOTAL HEMOGLOBIN 12.1 g/dL (12.0-18.0); BG VENT MODE NASAL CANNULA
[2022-07-11] MEDS: INSULIN LISPRO 100 UNITS/ML SUBCUT SCH ×4 (09:35→21:08)
[2022-07-11] MEDS: AMLODIPINE 10MG TABLET GT SCH (09:37)
[2022-07-11] MEDS: PANTOPRAZOLE SODIUM 40 MG/VIAL IV SCH (09:37)
[2022-07-11] MEDS: CEFTRIAXONE 2 G in DEXTROSE 5% WATER 50 ML IV SCH (09:38)
[2022-07-11] MEDS: ACETAMINOPHEN 325MG TABLET PO PRN ×2 (09:38→13:32)
[2022-07-11 10:51] LABS: PLATELET ESTIMATE NORMAL
[2022-07-11 12:00] VITALS: BP 104/31
[2022-07-11] MEDS: VANCOMYCIN 750MG PREMIX 150 ML IV SCH (13:31)
[2022-07-11] MEDS ORDERED: INSU100I28 SQ (13:41)
[2022-07-11] MEDS ORDERED: PANT40TA51 MT (13:41)
[2022-07-11] MEDS ORDERED: PRED10TA MT (13:41)
[2022-07-11] MEDS ORDERED: AMLO10TA80 GT (13:41)
[2022-07-11] MEDS ORDERED: METO-293 MT (13:41)
[2022-07-11] MEDS ORDERED: DOCU-150 PO (13:41)
[2022-07-11] MEDS ORDERED: ALBU6.7H3 INH (13:44)
[2022-07-11 16:00] VITALS: BP 107/35
[2022-07-11 20:00] VITALS: BP 112/44
[2022-07-11] MEDS: INSULIN GLARGINE 100 UNITS/ML SUBCUT SCH (21:08)
[2022-07-11] MEDS: SENNOSIDES 8.6MG TABLET PO SCH (21:09)
[2022-07-12] VITALS: BP 140/60
[2022-07-12] MEDS: ALBUTEROL (0.083%) 2.5MG/3ML NEB HHN SCH ×2 (00:31→09:12)
[2022-07-12] MEDS: METOCLOPRAMIDE HCL 10MG/2ML VIAL IV SCH ×2 (03:35→10:06)
[2022-07-12 04:00] VITALS: BP 114/34
[2022-07-12] MEDS: VANCOMYCIN 750MG PREMIX 150 ML IV SCH (05:09)
[2022-07-12 05:44] LABS: HEMATOCRIT. 33.5 % (42.0-52.0); HEMOGLOBIN. 11.1 g/dL (14.0-18.0); MEAN CORPUSCULAR HEMOGLOBIN 28.9 pg (28.0-32.0); MEAN CORPUSCULAR VOLUME 87.4 fL (80.0-94.0); PLATELET 269 x1000/uL (130-400); RED BLOOD CELL COUNT 3.83 mill/uL (4.7-6.1)
[2022-07-12 06:05] LABS: CHLORIDE 97 mEq/L (98-107)
[2022-07-12 06:11] LABS: VANCOMYCIN TROUGH 10.6 ug/mL (5.0-10.0)
[2022-07-12] MEDS: BLOOD SUGAR DIAGNOSTIC STRIP TEST SCH ×2 (07:19→12:46)
[2022-07-12 08:00] VITALS: BP 135/32
[2022-07-12] MEDS: INSULIN LISPRO 100 UNITS/ML SUBCUT SCH ×2 (08:10→12:46)
[2022-07-12] MEDS ORDERED: METHYLPREDNISOLONE SOD SUCC 40 MG/ML VIAL IV SCH (09:00)
[2022-07-12] MEDS ORDERED: VANCOMYCIN 500MG PREMIX 100 ML IV SCH (10:00)
[2022-07-12] MEDS: ENOXAPARIN 40MG/0.4ML SYR SUBCUT SCH (10:04)
[2022-07-12] MEDS: DOCUSATE SODIUM 100MG CAPSULE PO SCH (10:05)
[2022-07-12] MEDS: AMLODIPINE 10MG TABLET GT SCH (10:06)
[2022-07-12] MEDS: PANTOPRAZOLE SODIUM 40 MG/VIAL IV SCH (10:07)
[2022-07-12] MEDS: ACETAMINOPHEN 325MG TABLET PO PRN (10:22)
[2022-07-12] MEDS: CEFTRIAXONE 2 G in DEXTROSE 5% WATER 50 ML IV SCH (10:22)
[2022-07-12 12:49] VITALS: BP 150/70
[2022-07-12 12:54] LABS: PLATELET ESTIMATE NORMAL
[2022-07-13] MEDS ORDERED: VANCOMYCIN 1.25GM PMX (XELLIA) 250 ML IV SCH (08:00)
== END 2022-07-12 15:06 | disposition home or self-care (01) | DRG 208 ==
LOC: ER 19:16 → EDBD 19:16 → OBSVTOIN 07-01 19:07 → MICUNO 07-01 19:07 → 5EST 07-05 06:25 → 7WST 07-09 15:47
PROVIDERS: ADMIT Internal Medicine; ATTEND Internal Medicine
PROC: 5A1945Z Respiratory Ventilation, 24-96 Consecutive Hours (ICD-10-PCS; principal; 2022-06-30)
PROC: 0BH17EZ Insertion of Endotracheal Airway into Trachea, Via Natural or Artificial Opening (ICD-10-PCS; 2022-06-30)
PROC: 5A09357 Assistance with Respiratory Ventilation, Less than 24 Consecutive Hours, Continuous Positive Airway Pressure (ICD-10-PCS; 2022-07-04)
PROC: 02HV33Z Insertion of Infusion Device into Superior Vena Cava, Percutaneous Approach (ICD-10-PCS; 2022-07-06)
PROC: B548ZZA Ultrasonography of Superior Vena Cava, Guidance (ICD-10-PCS; 2022-07-06)
DX: J96.01 Acute respiratory failure with hypoxia (principal); G92.8 Other toxic encephalopathy; J69.0 Pneumonitis due to inhalation of food and vomit; N17.0 Acute kidney failure with tubular necrosis; K56.609 Unspecified intestinal obstruction, unspecified as to partial versus complete obstruction; E87.1 Hypo-osmolality and hyponatremia; J90 Pleural effusion, not elsewhere classified; E44.0 Moderate protein-calorie malnutrition; K80.10 Calculus of gallbladder with chronic cholecystitis without obstruction; E87.29 Other acidosis; K56.7 Ileus, unspecified; J96.02 Acute respiratory failure with hypercapnia; I11.0 Hypertensive heart disease with heart failure; E87.5 Hyperkalemia; I48.91 Unspecified atrial fibrillation; E11.65 Type 2 diabetes mellitus with hyperglycemia; I50.9 Heart failure, unspecified; D63.8 Anemia in other chronic diseases classified elsewhere; K57.90 Diverticulosis of intestine, part unspecified, without perforation or abscess without bleeding; Z20.822 Contact with and (suspected) exposure to COVID-19; M62.08 Separation of muscle (nontraumatic), other site; Z68.32 Body mass index [BMI] 32.0-32.9, adult; I27.20 Pulmonary hypertension, unspecified; I25.10 Atherosclerotic heart disease of native coronary artery without angina pectoris; K74.60 Unspecified cirrhosis of liver; M40.209 Unspecified kyphosis, site unspecified; N30.90 Cystitis, unspecified without hematuria; Z86.19 Personal history of other infectious and parasitic diseases
CPT/HCPCS: 31500; 36415; 36556; 36573; 36600; 71045; 71275; 74018; 74176; 74177; 76705; 80048; 80053; 80061; 80076; 80202; 80307; 80320; 80329; 82140; 82150; 82375; 82550; 82553; 82607; 82728; 82746; 82805; 82962; 83036; 83540; 83550; 83605; 83735; 83880; 83930; 84100; 84134; 84145; 84153; 84439; 84443; 84478; 84484; 85025; 85379; 85651; 86850; 86900; 87070; 87426; 87804; 93005; 93306; 93308; 93970; 94002; 94003; 94640; 94660; 96365; 97162; 97166; 97530; 99291; A6261; C1725; C9113; C9803; J0610; J0696; J1200; J1580; J1650; J1815; J1940; J2060; J2250; J2543; J2704; J2765; J2920; J2930; J3010; J3370; J3475; J3480; J3490; J7030; J7060; J7626; Q9967; A5200; G0103; G0480